=== PATIENT | female | born 1950 | race Caucasian/White ===

== ENCOUNTER 2018-09-09 07:32 | Inpatient (IN) | payer OTHER, MEDICARE ==
[2018-09-09] MEDS: SOD CHLORIDE 0.9% 100 ML, TRANEXAMIC ACID 3,000 MG IRR (06:00)
[2018-09-09] MEDS: CEFAZOLIN 2 GM/50 ML (PMX) 50 ML IVPB (06:00)
[2018-09-09] MEDS ORDERED: BUPIVACAINE 0.5% (SDV) 30 ML, EPINEPHrine 0.3 MG, KETOROLAC 30 MG, CLONIDINE 100 MCG, S... IRR (08:00)
[2018-09-09] MEDS ORDERED: GLYCOPYRROLATE 0.4 MG INJ (08:18)
[2018-09-09] MEDS ORDERED: MIDAZOLAM 1 MG/ML 2 ML INJ (08:18)
[2018-09-09] MEDS ORDERED: CEFAZOLIN 1 GM INJ (08:18)
[2018-09-09] MEDS ORDERED: ROCURONIUM 50 MG INJ (08:18)
[2018-09-09] MEDS ORDERED: ONDANSETRON 4 MG INJ (08:18)
[2018-09-09] MEDS ORDERED: PROPOFOL 20 ML (08:18)
[2018-09-09] MEDS ORDERED: FENTAnyl 50 MCG/ML VIAL (08:18)
[2018-09-09] MEDS ORDERED: NEOSTIGMINE 3 MG/3 ML SYRINGE (08:18)
[2018-09-09] MEDS ORDERED: DEXAMETHASONE 4 MG/ML 1 ML INJ (08:19)
[2018-09-09] MEDS ORDERED: morphine SULFATE/PF (10 MG/10 ML) INJ (08:19)
[2018-09-09] MEDS ORDERED: PHENYLephrine (100 MCG/ML) 5ML SYG ×2 (08:23→11:02)
[2018-09-09] MEDS: traMADol 50 MG TAB PO (08:30)
[2018-09-09] MEDS: DEXAMETHASONE 1 MG TAB PO (08:30)
[2018-09-09] MEDS: GABAPENTIN 300 MG CAP PO ×2 (08:31→20:29)
[2018-09-09] MEDS ORDERED: SUGAMMADEX SODIUM 200 MG/2 ML VIAL IV (08:44)
[2018-09-09] MEDS ORDERED: METOCLOPRAMIDE 10 MG INJ (08:46)
[2018-09-09] MEDS: TRANEXAMIC ACID 1,000 MG in DEXTROSE 5% 100 ML IVPB (10:00)
[2018-09-09] MEDS ORDERED: SCOPOLAMINE 1.5 MG PATCH (10:00)
[2018-09-09] MEDS ORDERED: PROPOFOL 100 ML (10:03)
[2018-09-09] MEDS ORDERED: THROMBIN 5000 UNIT VIAL (10:19)
[2018-09-09] MEDS ORDERED: POLYMYXIN/BACITRACIN 1L IRRIG (10:19)
[2018-09-09] MEDS ORDERED: CA CHLORIDE 10% 10 ML SYRINGE (10:19)
[2018-09-09] MEDS ORDERED: KETOROLAC 15 MG INJ IV ×2 (10:30→12:00)
[2018-09-09] MEDS ORDERED: hydrALAzine 20 MG INJ IV (10:30)
[2018-09-09] MEDS ORDERED: MIDAZOLAM 1 MG/ML 2 ML INJ IV (10:30)
[2018-09-09] MEDS ORDERED: NALBUPHINE HCL (10 MG/1 ML) INJ IV (10:30)
[2018-09-09] MEDS ORDERED: HYDROmorphONE 1 MG/5 ML IV SYRINGE IV ×3 (10:30)
[2018-09-09] MEDS ORDERED: ONDANSETRON 4 MG INJ IV ×2 (10:30→12:00)
[2018-09-09] MEDS ORDERED: EPHEDrine SULFATE 50 MG/5 ML SYG IV (10:30)
[2018-09-09] MEDS ORDERED: HYDROmorphONE 0.5 MG/0.5 ML SYG IV (10:30)
[2018-09-09] MEDS ORDERED: ALBUTEROL 0.083% (NEB) 2.5 MG/3 ML AMP HHN (10:30)
[2018-09-09] MEDS ORDERED: FENTAnyl 50 MCG/ML VIAL IV ×3 (10:30)
[2018-09-09] MEDS ORDERED: IPRATROPIUM (NEB) 0.5 MG/2.5 ML AMP HHN (10:30)
[2018-09-09] MEDS ORDERED: DIPHENHYDRAMINE 50 MG INJ IV ×3 (10:30→12:00)
[2018-09-09] MEDS ORDERED: MEPERIDINE 25 MG INJ IV (10:30)
[2018-09-09] MEDS ORDERED: NALOXONE (0.4 MG/ML) INJ IV (10:30)
[2018-09-09] MEDS ORDERED: LABETALOL HCL 20MG INJ IV (10:30)
[2018-09-09] MEDS ORDERED: TRIMETHOBENZAMIDE 100 MG/ML VIAL IM ×2 (10:30)
[2018-09-09] MEDS ORDERED: morphine 2 MG INJ IV ×2 (12:00)
[2018-09-09] MEDS ORDERED: ZOLPIDEM 5 MG TAB PO (12:00)
[2018-09-09] MEDS ORDERED: ACETAMINOPHEN 500 MG TAB PO (12:00)
[2018-09-09] MEDS ORDERED: MAGNESIUM HYDROXIDE 30ML CUP PO (12:00)
[2018-09-09] MEDS ORDERED: SUMATRIPTAN 50 MG TAB PO (13:00)
[2018-09-09] MEDS: TRANEXAMIC ACID 1,000 MG in DEXTROSE 5% 100 ML IV (13:01)
[2018-09-09 13:03] LABS: ADD MAN DIFF? NO
[2018-09-09 13:08] LABS: BASOPHILS % 0.3 % (0.0-2.0); EOSINOPHILS % 0.1 % (0.0-7.0); HEMATOCRIT 36.8 % (37.0-47.0); HEMOGLOBIN 12.3 g/dl (12.0-16.0); LYMPHOCYTES # 0.8 10^3/ul (0.8-2.9); MEAN CORPUSCULAR HEMOGLOBIN 30.6 pg (29.0-33.0); MEAN CORPUSCULAR HGB CONC 33.4 g/dl (32.0-37.0); MEAN CORPUSCULAR VOLUME 91.5 fl (82.0-101.0); MEAN PLATELET VOLUME 9.7 fl (7.4-10.4); MONOCYTE # 0.2 10^3/ul (0.3-0.9); MONOCYTES % 3.1 % (0.0-11.0); NEUTROPHIL # 6.4 10^3/ul (1.6-7.5); NEUTROPHILS % 85.1 % (39.0-77.0); PLATELET COUNT 229 10^3/UL (140-415); RED BLOOD COUNT 4.02 10^6/ul (4.20-5.40); RED CELL DISTRIBUTION WIDTH 12.2 % (11.5-14.5)
[2018-09-09 13:08] LABS: WHITE BLOOD COUNT 7.5 10^3/ul (4.8-10.8)
[2018-09-09] MEDS ORDERED: CEFAZOLIN 1 GM/50 ML (PMX) 50 ML IVPB (15:00)
[2018-09-09] MEDS: ONDANSETRON 4 MG INJ IV (15:36)
[2018-09-09] MEDS: LACTATED RINGER'S 1,000 ML IV ×2 (15:42→19:43)
[2018-09-09] MEDS: DEXAMETHASONE 2 MG TAB PO ×2 (17:26→23:38)
[2018-09-09] MEDS: CEFAZOLIN 1 GM/50 ML (PMX) 50 ML IVPB (17:27)
[2018-09-09] MEDS: ATORVASTATIN 40 MG TAB PO (20:28)
[2018-09-09] MEDS: SENNA/DOCUSATE NA (8.6MG/50MG) TAB PO (20:29)
[2018-09-09] MEDS: ATENOLOL 25 MG TAB PO (20:30)
[2018-09-10] MEDS: CEFAZOLIN 1 GM/50 ML (PMX) 50 ML IVPB ×2 (01:48→10:31)
[2018-09-10] MEDS: HYDROmorphONE 0.5 MG/0.5 ML SYG IV ×2 (02:19→06:43)
[2018-09-10 05:05] LABS: ADD MAN DIFF? NO
[2018-09-10 05:13] LABS: ABNORMAL IP MESSAGE 1; BASOPHILS % 0.1 % (0.0-2.0); HEMATOCRIT 32.8 % (37.0-47.0); HEMOGLOBIN 11.1 g/dl (12.0-16.0); LYMPHOCYTES # 0.6 10^3/ul (0.8-2.9); LYMPHOCYTES % 5.5 % (15.0-51.0); MEAN CORPUSCULAR HEMOGLOBIN 30.9 pg (29.0-33.0); MEAN CORPUSCULAR HGB CONC 33.8 g/dl (32.0-37.0); MEAN CORPUSCULAR VOLUME 91.4 fl (82.0-101.0); MONOCYTE # 0.8 10^3/ul (0.3-0.9); MONOCYTES % 7.6 % (0.0-11.0); NEUTROPHIL # 8.8 10^3/ul (1.6-7.5); NEUTROPHILS % 86.3 % (39.0-77.0); PLATELET COUNT 246 10^3/UL (140-415); RED BLOOD COUNT 3.59 10^6/ul (4.20-5.40); RED CELL DISTRIBUTION WIDTH 12.3 % (11.5-14.5)
[2018-09-10 05:13] LABS: WHITE BLOOD COUNT 10.2 10^3/ul (4.8-10.8)
[2018-09-10] MEDS: DEXAMETHASONE 2 MG TAB PO ×2 (05:23→11:51)
[2018-09-10 05:42] LABS: POSITIVE DIFF @See below
[2018-09-10] MEDS: LACTATED RINGER'S 1,000 ML IV ×2 (06:41→10:32)
[2018-09-10] MEDS: HYDROCHLOROTHIAZIDE 25 MG TAB PO (09:00)
[2018-09-10] MEDS: ASPIRIN 81 MG TAB PO (09:06)
[2018-09-10] MEDS: ATENOLOL 25 MG TAB PO ×2 (09:06→20:28)
[2018-09-10] MEDS: SENNA/DOCUSATE NA (8.6MG/50MG) TAB PO ×2 (09:06→20:28)
[2018-09-10] MEDS: OXYCODONE/ACETAMINOPHEN (5/325) TAB PO ×2 (10:53→15:01)
[2018-09-10] MEDS: GABAPENTIN 300 MG CAP PO (20:28)
[2018-09-10] MEDS: ATORVASTATIN 40 MG TAB PO (20:28)
[2018-09-11] MEDS: OXYCODONE/ACETAMINOPHEN (5/325) TAB PO ×2 (01:20→10:02)
[2018-09-11 05:26] LABS: ADD MAN DIFF? NO
[2018-09-11 05:36] LABS: BASOPHILS % 0.1 % (0.0-2.0); HEMATOCRIT 31.9 % (37.0-47.0); HEMOGLOBIN 10.6 g/dl (12.0-16.0); LYMPHOCYTES % 12.2 % (15.0-51.0); MEAN CORPUSCULAR HEMOGLOBIN 30.7 pg (29.0-33.0); MEAN CORPUSCULAR HGB CONC 33.2 g/dl (32.0-37.0); MEAN CORPUSCULAR VOLUME 92.5 fl (82.0-101.0); MEAN PLATELET VOLUME 10.2 fl (7.4-10.4); MONOCYTE # 0.9 10^3/ul (0.3-0.9); MONOCYTES % 10.6 % (0.0-11.0); NEUTROPHIL # 6.5 10^3/ul (1.6-7.5); NEUTROPHILS % 76.6 % (39.0-77.0); PLATELET COUNT 233 10^3/UL (140-415); RED BLOOD COUNT 3.45 10^6/ul (4.20-5.40); RED CELL DISTRIBUTION WIDTH 12.4 % (11.5-14.5)
[2018-09-11 05:36] LABS: WHITE BLOOD COUNT 8.5 10^3/ul (4.8-10.8)
[2018-09-11] MEDS: SENNA/DOCUSATE NA (8.6MG/50MG) TAB PO (08:41)
[2018-09-11] MEDS: ASPIRIN 81 MG TAB PO (08:41)
[2018-09-11] MEDS: ATENOLOL 25 MG TAB PO (08:41)
== END 2018-09-11 13:00 | disposition home or self-care (01) | DRG 470 ==
LOC: REC 07:32 → MS1 13:59
PROVIDERS: Orthopaedic Surgery
PROC: 0SRB04A Replacement of Left Hip Joint with Ceramic on Polyethylene Synthetic Substitute, Uncemented, Open Approach (ICD-10-PCS; principal; 2018-09-09 09:30)
DX: M16.7 Other unilateral secondary osteoarthritis of hip (principal); M90.552 Osteonecrosis in diseases classified elsewhere, left thigh; I10 Essential (primary) hypertension; E78.5 Hyperlipidemia, unspecified; I25.10 Atherosclerotic heart disease of native coronary artery without angina pectoris; L40.9 Psoriasis, unspecified; Z79.82 Long term (current) use of aspirin
CPT/HCPCS: 71045; 72170; 73530; 85025; 86999; 87086; 88304; 97116; 97161; 97530

== ENCOUNTER 2019-05-20 09:57 | Emergency (ER) | payer MEDICARE, OTHER ==
[2019-05-20] MEDS: ONDANSETRON 4 MG INJ IV (10:23)
[2019-05-20] MEDS: SOD CHLORIDE 0.9% 1,000 ML IV (10:23)
[2019-05-20] MEDS: morphine 4 MG/ML VIAL IV (10:23)
[2019-05-20 10:26] LABS: ADD MAN DIFF? NO
[2019-05-20 10:30] LABS: BASOPHILS % 0.8 % (0.0-2.0); EOSINOPHILS # 0.2 10^3/ul (0.0-0.5); HEMATOCRIT 42.7 % (37.0-47.0); HEMOGLOBIN 14.4 g/dl (12.0-16.0); LYMPHOCYTES # 1.6 10^3/ul (0.8-2.9); LYMPHOCYTES % 31.9 % (15.0-51.0); MEAN CORPUSCULAR HEMOGLOBIN 30.9 pg (29.0-33.0); MEAN CORPUSCULAR HGB CONC 33.7 g/dl (32.0-37.0); MEAN CORPUSCULAR VOLUME 91.6 fl (82.0-101.0); MEAN PLATELET VOLUME 10.4 fl (7.4-10.4); MONOCYTE # 0.6 10^3/ul (0.3-0.9); MONOCYTES % 11.9 % (0.0-11.0); NEUTROPHIL # 2.6 10^3/ul (1.6-7.5); NEUTROPHILS % 52.2 % (39.0-77.0); PLATELET COUNT 234 10^3/UL (140-415); RED BLOOD COUNT 4.66 10^6/ul (4.20-5.40); RED CELL DISTRIBUTION WIDTH 12.5 % (11.5-14.5)
[2019-05-20 10:45] LABS: ANION GAP 10 (5-13); BLOOD UREA NITROGEN 26 mg/dl (7-20); CALCIUM 10.1 mg/dl (8.4-10.2); CARBON DIOXIDE 30 mmol/L (21-31); CHLORIDE 103 mmol/L (97-110); CREATININE 0.94 mg/dl (0.44-1.00); Estimated GFR 60 mL/min (>60); GLUCOSE 147 mg/dl (70-220); POTASSIUM 4.5 mmol/L (3.5-5.1); SODIUM 143 mmol/L (135-144)
[2019-05-20] MEDS: PROPOFOL 100 ML IV (11:20)
[2019-05-20] MEDS: FENTAnyl 50 MCG/ML VIAL IV (11:20)
== END 2019-05-20 12:30 | disposition home or self-care (01) ==
LOC: E/R 09:57
DX: S73.005A Unspecified dislocation of left hip, initial encounter (principal); T84.021A Dislocation of internal left hip prosthesis, initial encounter; I10 Essential (primary) hypertension; W18.39XA Other fall on same level, initial encounter; Y79.2 Prosthetic and other implants, materials and accessory orthopedic devices associated with adverse incidents; Y92.89 Other specified places as the place of occurrence of the external cause; Z79.82 Long term (current) use of aspirin
CPT/HCPCS: 27265; 36415; 72170; 73510; 80048; 85025; 94770; 96374; 96375; 99285-25